=== PATIENT | male | born 1970 | race Asian ===

== ENCOUNTER 2016-03-27 16:13 | Emergency (ER) | payer SELFPAY ==
[2016-03-27 16:20] VITALS: RESP 16; TEMP 97.9
--- NOTE | 2016-03-27 16:58 | EDPHY ---
H & P Time Seen by Provider: 03/27/16 16:55 HPI/ROS: CHIEF COMPLAINT: Abdominal pain. HISTORY OF PRESENT ILLNESS: This is a 45-year-old male with a history intra- abdominal infection requiring colostomy who presents with severe abdominal pain since last night. The pain is constant. Associated with vomiting this morning. Passing a small amount of stool. History of 2 prior similar episodes, without clear diagnosis. He denies other complaints at this time. REVIEW OF SYSTEMS: A complete 10-point review of systems was performed and is negative except for those items mentioned in the HPI. Past Medical/Surgical History: Colostomy. Social History: Here with friend. Smoking Status: Current some day smoker Physical Exam: General Appearance: Moderate distress. Alert. Eyes: Pupils equal and round, no conjunctival pallor or injection ENT, Mouth: Mucous membranes moist Neck: Normal inspection Respiratory: Lungs are clear to auscultation Cardiovascular: Regular rate and rhythm Gastrointestinal: Hypoactive bowel sounds. Diffuse abdominal tenderness. Abdomen is soft. Neurological: A&O, nonfocal, normal gait Skin: Warm and dry, no rash Extremities: Nontender, no pedal edema Psychiatric: Mood and affect normal Constitutional: Initial Vital Signs Temperature (C) 36.6 C 03/27/16 16:17 Heart Rate 82 03/27/16 16:17 Respiratory Rate 16 03/27/16 16:17 Blood Pressure 115/75 03/27/16 16:17 O2 Sat (%) 94 03/27/16 16:17 O2 Delivery Mode Room Air Allergies/Adverse Reactions: No Known Allergies Allergy (Unverified 03/21/15 21:45) Home Medications: Medication Instructions Recorded Hydrocodone/APAP 5/325 [[place] 1 - 2 tab PO Q4H PRN #10 tab 03/27/16 5/325] Ondansetron Odt [Zofran Odt 4 mg 4 mg PO Q4 PRN #6 tab 03/27/16 (*)] Medical Decision Making - Diagnostics Imaging: Study: CT of the Abdomen. Indication: Pain. Results: 1. Postoperative changes of colostomy in the right lower quadrant with no associated small bowel obstruction. 2. No ascites or free air is seen. 3. Gastric distention is less pronounced than on the prior study. 4. Postoperative changes are seen involving the rectum and distal sigmoid colon with wall thickening again seen, which is less pronounced than on the previous study. Shotty lymph nodes are seen in the perirectal fat surrounding the operative site. Comparison with older studies if available would be helpful to assess for change. 5. Equivocal left renal lesion with follow up recommended and also comparison with older studies if available. 6. See above report for additional findings. The study was read by the radiologist, Dr. Dupree. I viewed the images myself on the PACS system. ED Course/Re-evaluation: Clinical presentation concerning for acute small-bowel obstruction. An IV was established, Dilaudid and Zofran IV given and labs ordered. Abdominal CT ordered. 1950: Reassessed patient. Discussed with him the results of his CT scan. No evidence of an acute intraabd problem such as SBO or abscess. He is feeling better and would like to go home. Tolerated ice chips well. Abd exam benign. Encouraged to f/u PCP. I answered all of his questions. He was given abd pain precautions prior to discharge. Differential Diagnosis: Differential diagnosis includes though it is not limited to appendicitis, cholecystitis, diverticulitis, pyelonephritis, bowel perforation, small bowel obstruction. - Data Points Laboratory Results: Laboratory Results 03/27/16 17:09 03/27/16 17:09 Medications Given: Discontinued Medications Acetaminophen/Hydrocodone Bitart ([place] 5/325mg Prepack#6) 1 btl TAKEHOME EDNOW ONE Stop: 03/27/16 19:51 Last Admin: 03/27/16 21:00 Dose: 1 btl Hydromorphone HCl (Dilaudid) 1 mg IVP EDNOW ONE Stop: 03/27/16 17:10 Last Admin: 03/27/16 17:35 Dose: 1 mg Hydromorphone HCl (Dilaudid) 1 mg IVP EDNOW ONE Stop: 03/27/16 19:17 Last Admin: 03/27/16 19:27 Dose: 1 mg Sodium Chloride (Ns) 1,000 mls @ 0 mls/hr IV ONCE ONE PRN Reason: Wide Open Stop: 03/27/16 17:10 Last Admin: 03/27/16 18:13 Dose: 1,000 mls Sodium Chloride (Ns) 1,000 mls @ 0 mls/hr IV ONCE ONE PRN Reason: Wide Open Stop: 03/27/16 17:10 Last Admin: 03/27/16 17:00 Dose: 1,000 mls Ondansetron HCl (Zofran) 4 mg IVP EDNOW ONE Stop: 03/27/16 17:10 Last Admin: 03/27/16 17:35 Dose: 4 mg Ondansetron HCl (Zofran Odt 4 Mg Prepack#2) 1 btl TAKEHOME EDNOW ONE Stop: 03/27/16 19:51 Last Admin: 03/27/16 20:58 Dose: 1 btl Departure - Departure Disposition: Home, Routine, Self-Care Clinical Impression: Abdominal pain Qualifiers: Abdominal location: generalized Qualifier Code: (R10.84) Generalized abdominal pain Condition: Good Instructions: Abdominal Pain (ED), Hydrocodone/Acetaminophen (By mouth), Ondansetron (By mouth) Additional Instructions: Follow up with your primary care provider in the next 2-3 days if symptoms are not improving. If you need a primary care provider you have been given the telephone number of [facility]. Take 1 tablet Hydrocodone every 4 hours as instructed for pain. Take 1 Zofran every 4 to 6 hours as instructed for nausea. Return to the emergency department if you experience serious worsening of condition. Referrals: [facility] [Outside] - As per Instructions Prescriptions: Hydrocodone/APAP 5/325 [[place] 5/325] 1 - 2 tab PO Q4H PRN #10 tab PRN Reason: Pain, Moderate Ondansetron Odt [Zofran Odt 4 mg (*)] 4 mg PO Q4 PRN #6 tab PRN Reason: Nausea Report Scribed for: Blessing Sun Report Scribed by: Eric Flynn Date of Report: 03/27/16 Time of Report: 16:58 Physician Review and Approval Statement: 03/27/16 16:58 Portions of this note were transcribed by a medical record transcriber. I personally performed a history, physical exam, medical decision making, and confirmed accuracy of information the transcribed note.
[2016-03-27] MEDS ORDERED: NS 1,000 ML IV ONE ×2 (17:09)
[2016-03-27] MEDS ORDERED: HYDROmorphONE/DILAUDID 1 MG/ML SYR IVP ONE ×2 (17:09→19:16)
[2016-03-27] MEDS ORDERED: ONDANSETRON 4 MG/2 ML VIAL IVP ONE (17:09)
[2016-03-27 17:46] LABS: % IMMATURE GRANULYOCYTES 0.3 % (0.0-1.1); ABSOLUTE IMMATURE GRANULOCYTES 0.02 10^3/uL (0.00-0.10); ADD DIFF? NO; ADD MORPH? NO; ADD SCAN? NO; ATYPICAL LYMPHOCYTE FLAG 10 (0-99); FRAGMENT RBC FLAG 0 (0-99); HEMATOCRIT 38.4 % (40.0-51.0); HEMOGLOBIN 13.2 g/dL (13.7-17.5); LEFT SHIFT FLG 0 (0-99); LIPEMIA HEMOLYSIS FLAG 90 (0-99); MEAN CELL HEMOGLOBIN 31.6 pg (27.9-34.1); MEAN CELL HEMOGLOBIN CONCENTR. 34.4 g/dL (32.4-36.7); MEAN CELL VOLUME 91.9 fL (81.5-99.8); MEAN PLATELET VOLUME 10.1 fL (8.7-11.7); PLATELET CLUMPS FLAG 10 (0-99); PLATELET COUNT 165 10^3/uL (150-400); RED BLOOD CELL COUNT 4.18 10^6/uL (4.40-6.38); RED CELL DISTRIBUTION WIDTH 13.6 % (11.5-15.2)
[2016-03-27 17:52] LABS: ALANINE AMINOTRANSFERASE 33 IU/L (21-72); ALBUMIN 3.7 g/dL (3.5-5.0); ALKALINE PHOSPHATASE 85 IU/L (38-126); ANION GAP 10 mEq/L (8-16); ASPARTATE AMINOTRANSFERASE 29 IU/L (17-59); BILIRUBIN,TOTAL 0.9 mg/dL (0.1-1.4); BILIRUBIN-CONJUGATED 0.2 mg/dL (0.0-0.5); BILIRUBIN-UNCONJUGATED 0.7 mg/dL (0.0-1.1); CALCIUM 8.9 mg/dL (8.5-10.4); CARBON DIOXIDE 24 mEq/l (22-31); CHLORIDE 108 mEq/L (97-110); CREATININE 0.9 mg/dL (0.7-1.3); GLOMERULAR FILTRATION RATE > 60; GLUCOSE 101 mg/dL (70-100); POTASSIUM 4.1 mEq/L (3.5-5.2); SODIUM 142 mEq/L (134-144); TOTAL PROTEIN 6.4 g/dL (6.3-8.2)
[2016-03-27] MEDS ORDERED: IOPAMIDOL (ISOVUE-300) 50 ML VIAL IV ONE ×2 (18:14)
--- NOTE | 2016-03-27 19:46 | CT ---
CT Scan of the Abdomen and Pelvis With Contrast Indication: Severe abdominal pain in a 45-year-old male with a history of colostomy. Evaluate for sma ll bowel obstruction. Technique: Multidetector CT images of the abdomen and pelvis were obtained following the uneventful intravenous administration of 90 mL Isovue-300 contrast. No oral contrast was administered. Axial shona ges were obtained at 5-mm intervals and reformatted at 1.5-mm thickness. The examination was reviewed on the workstation at multiple window/level settings. Sagittal and coronal reformations were perform ed. Dose reduction techniques were utilized for this examination. Comparison: Comparison to the previous study from March 21, 2015. CT Abdomen Findings: Lung bases: Normal. No pleural fluid. There is gastric distention, which is less pronounced than on the previous examination. Liver: Normal. Biliary system: Normal gallbladder. No intra or extrahepatic dilatation. Spleen: There is a 1 cm diameter well circumscribed fluid attenuation area within the periphery of th e spleen, presumably a simple cyst. This was present on the previous study, but is more optimally dem onstrated on the current examination. Pancreas: Normal. Adrenals: Normal. Kidneys: No nephrolithiasis or hydronephrosis. There is a 2 cm diameter area of diminished attenuatio n in the midpole of the left kidney laterally. This is of uncertain etiology. A targeted renal ultras ound could be performed in 3 months for further characterization and to evaluate for stability. This was not definitely seen on the prior study. Abdominal Aorta: No aneurysm. No bowel obstruction, ascites, or retroperitoneal lymphadenopathy. CT Pelvis Findings: Postoperative changes of colostomy are seen in the right lower quadrant. There is no bowel dilatation or obstruction associated with the ostomy. On the previous study, there was rath er pronounced thickening of the rectal soft tissues in a region where there has been prior operation. The extent of bowel wall thickening has significantly diminished compared to the previous examinatio n. No free fluid is identified. Numerous paracolic shotty lymph nodes are seen in this region. Impression: 1. Postoperative changes of colostomy in the right lower quadrant with no associated small bowel obst ruction. 2. No ascites or free air is seen. 3. Gastric distention is less pronounced than on the prior study. 4. Postoperative changes are seen involving the rectum and distal sigmoid colon with wall thickening again seen, which is less pronounced than on the previous study. Shotty lymph nodes are seen in the p erirectal fat surrounding the operative site. Comparison with older studies if available would be hel pful to assess for change. 5. Equivocal left renal lesion with follow up recommended and also comparison with older studies if a vailable. 6. See above report for additional findings. A preliminary report was called to Dr. Blessing Sun at 1930 hours in the Emergency Department.
[2016-03-27] MEDS ORDERED: HYDROCOD/APAP 5/325 PREPACK#6 BTL TAKEHOME ONE (19:50)
[2016-03-27] MEDS ORDERED: ONDANSETRON 4MG PREPACK#2 BTL TAKEHOME ONE (19:50)
[2016-03-27 21:02] VITALS: BP 119/76; PULSE 67; O2SAT 95
== END 2016-03-27 21:02 | disposition home or self-care (01) ==
DX: R10.84 Generalized abdominal pain (principal); F17.200 Nicotine dependence, unspecified, uncomplicated; R11.10 Vomiting, unspecified
CPT/HCPCS: 96374; J1170; J2405; Q9967

== ENCOUNTER 2016-07-24 19:13 | Emergency (ER) | payer SELFPAY ==
[2016-07-24 19:20] VITALS: BP 130/78; PULSE 102; RESP 24; TEMP 97.7; O2SAT 96
--- NOTE | 2016-07-24 19:23 | EDPHY ---
H & P Stated Complaint: R leg swelling and pain Time Seen by Provider: 07/24/16 19:22 - Personal History Current Tetanus/Diphtheria Vaccine: Unsure Current Tetanus Diphtheria and Acellular Pertussis (TDAP): Unsure - Medical/Surgical History Hx Asthma: No Hx Chronic Respiratory Disease: No Hx Diabetes: No Hx Cardiac Disease: No Hx Renal Disease: No Hx Cirrhosis: No Hx Alcoholism: No Hx HIV/AIDS: No Hx Splenectomy or Spleen Trauma: No Other PMH: colostomy, abdo sx, leg sx, clots in leg - Social History Smoking Status: Current every day smoker Constitutional: Initial Vital Signs Temperature (C) 36.5 C 07/24/16 19:17 Heart Rate 102 H 07/24/16 19:17 Respiratory Rate 24 H 07/24/16 19:17 Blood Pressure 130/78 H 07/24/16 19:17 O2 Sat (%) 96 07/24/16 19:17 O2 Delivery Mode Room Air Allergies/Adverse Reactions: No Known Allergies Allergy (Unverified 07/24/16 19:16) Home Medications: Medication Instructions Recorded Ibuprofen 07/24/16 oxyCODONE IR [Oxycodone Ir (*)] 5 - 10 mg PO Q6 PRN #20 tab 07/24/16 Medical Decision Making - Diagnostics Imaging Results: Imaging Impressions Extremity Venous Study 07/24/16 19:27 Impression: No deep venous thrombosis right leg. Imaging: Discussed imaging studies w/ call center dispatcher Radiologist ED Course/Re-evaluation: CHIEF COMPLAINT: Right leg pain HISTORY OF PRESENT ILLNESS: The patient is a 46 y/o male complaining of right leg pain and swelling onset 3 days ago. He reports a history of unspecified right leg venous surgery in 1991 and has ongoing pain in this leg. His pain has worsened over the last few days, though it's unclear if the swelling is new or chronic. No chest pain, shortness of breath, recent travel, or long periods of sitting. No anticoagulants. REVIEW OF SYSTEMS: A 10 point review of systems was performed and is negative with the exception of the elements mentioned in the history of present illness. PHYSICAL EXAM: HR, BP, O2 Sat, RR. Temp noted General Appearance: Alert, well hydrated, appropriate, and non-toxic appearing. Head: Atraumatic without scalp tenderness or obvious injury Eyes: Pupils equal, round, reactive to light and accommodation, EOMI, no trauma , no injection. Throat: mucus membranes moist. Neck: Supple,nontender, no lymphadenopathy. Respiratory: No retractions, no distress, no wheezes, and no accessory muscle use. Lungs are clear to auscultation bilaterally. Cardiovascular: Regular rate and rhythm, no murmurs, rubs, or gallops. Right dorsalis pedis pulse intact. Good capillary refill all extremities. Gastrointestinal: Abdomen is soft, nontender, non-distended, no masses, no rebound, no guarding, no peritoneal signs. Musculoskeletal: Right leg: Hugely swollen leg with chronic unspecified venous issues with significant scar tissue. Other extremities are normal in appearance. Neurological: Alert, appropriate, and interactive. Nonfocal neuro exam. Skin: No rashes, good turgor, no nodules on palpation. Past medical history: "Vein problem" Past surgical history: Unspecified right leg vein surgery in 1991. Family history: noncontributory Social history: Friend at bedside translated for me. Prior medical records reviewed including ED visit March 2016 and March 2015 for pain. DIAGNOSTICS/PROCEDURES/CRITICAL CARE TIME: US right leg: negative for DVT DIFFERENTIAL DIAGNOSIS: The differential diagnosis for the patient's leg swelling included but was not limited to chronic lymphedema, hypoalbuminemia, congestive heart failure, cor pulmonale, venous stasis, trauma, and DVT. MEDICAL DECISION MAKING: This is a 46 y/o male with chronic right leg pain complaining of worsening pain over the last 3 days. History is limited and obtained primarily from his friend who is translating at bedside for me. He has significant lymphedema, which may be chronic, and surgical scars along his leg. He has a narcotic caution on his chart. Plan for US of right leg to rule out DVT and CPDMP review. Reviewed patient's narcotic history on CPDMP. He has received several narcotic prescriptions from different providers over the last year - 180 pills of 10mg oxycodone in May by Dr. Lou Gonzalez and a separate script in June from another provider. He reported to me today that he is only using ibuprofen for pain. Reassessed patient and discussed findings with the patient. He will be discharged with a small narcotic script and recommendation to follow up with Dr. Gonzalez, who prescribes his narcotics, for ongoing pain. Return precautions given. He is comfortable with this plan. - Data Points Medications Given: Discontinued Medications Oxycodone/Acetaminophen (Percocet 5/325) 2 tab PO EDNOW ONE Stop: 07/24/16 19:29 Last Admin: 07/24/16 19:55 Dose: 2 tab Oxycodone/Acetaminophen (Percocet 5/325mg Prepack#4) 1 btl TAKEHOME EDNOW ONE Stop: 07/24/16 20:22 Last Admin: 07/24/16 20:34 Dose: 1 btl Departure - Departure Disposition: Home, Routine, Self-Care Clinical Impression: Leg pain, right Condition: Good Instructions: Leg Pain (ED) Additional Instructions: Follow up with the doctor that prescribes your pain medication for continued pain. Return to the ED for shortness of breath, chest pain, or other worsening of condition. Referrals: [facility],. [Clinic] - As per Instructions Prescriptions: oxyCODONE IR [Oxycodone Ir (*)] 5 - 10 mg PO Q6 PRN #20 tab PRN Reason: Pain, Severe Report Scribed for: Robby Scott Report Scribed by: Megan Hardy Date of Report: 07/24/16 Time of Report: 19:31
[2016-07-24] MEDS ORDERED: OXYCODONE/APAP 5/325 TAB PO ONE (19:28)
[2016-07-24] MEDS ORDERED: OXYCODONE/APAP 5/325MG PREPACK#4 BTL TAKEHOME ONE (20:21)
== END 2016-07-24 20:35 | disposition home or self-care (01) ==
DX: M79.604 Pain in right leg (principal); F17.200 Nicotine dependence, unspecified, uncomplicated

== ENCOUNTER 2017-01-25 02:47 | Emergency (ER) | payer SELFPAY ==
[2017-01-25] MEDS ORDERED: ACETAMINOPHEN 500 MG TAB PO ONE (03:20)
[2017-01-25] MEDS ORDERED: KETOROLAC 15 MG/1 ML SDV IVP ONE (03:20)
[2017-01-25] MEDS ORDERED: KETAMINE 100 MG/10 ML SYR IVP ONE (03:20)
[2017-01-25 03:38] LABS: % IMMATURE GRANULYOCYTES 0.2 % (0.0-1.1); ABSOLUTE IMMATURE GRANULOCYTES 0.02 10^3/uL (0.00-0.10); ADD DIFF? NO; ADD MORPH? NO; ADD SCAN? NO; ATYPICAL LYMPHOCYTE FLAG 0 (0-99); FRAGMENT RBC FLAG 0 (0-99); HEMATOCRIT 40.1 % (40.0-51.0); HEMOGLOBIN 14.1 g/dL (13.7-17.5); LEFT SHIFT FLG 0 (0-99); LIPEMIA HEMOLYSIS FLAG 90 (0-99); MEAN CELL HEMOGLOBIN CONCENTR. 35.2 g/dL (32.4-36.7); MEAN CELL VOLUME 90.9 fL (81.5-99.8); MEAN PLATELET VOLUME 9.4 fL (8.7-11.7); PLATELET CLUMPS FLAG 0 (0-99); PLATELET COUNT 176 10^3/uL (150-400); RED BLOOD CELL COUNT 4.41 10^6/uL (4.40-6.38); RED CELL DISTRIBUTION WIDTH 12.9 % (11.5-15.2)
[2017-01-25 03:49] LABS: ALANINE AMINOTRANSFERASE 45 IU/L (21-72); ALBUMIN 4.5 g/dL (3.5-5.0); ALKALINE PHOSPHATASE 76 IU/L (38-126); ANION GAP 13 mEq/L (8-16); ASPARTATE AMINOTRANSFERASE 50 IU/L (17-59); BILIRUBIN,TOTAL 0.8 mg/dL (0.1-1.4); CALCIUM 9.4 mg/dL (8.5-10.4); CARBON DIOXIDE 24 mEq/l (22-31); CHLORIDE 106 mEq/L (97-110); CREATININE 0.9 mg/dL (0.7-1.3); GLOMERULAR FILTRATION RATE > 60; GLUCOSE 138 mg/dL (70-100); POTASSIUM 3.9 mEq/L (3.5-5.2); SODIUM 143 mEq/L (134-144); TOTAL PROTEIN 7.3 g/dL (6.3-8.2)
[2017-01-25 04:34] VITALS: RESP 16
--- NOTE | 2017-01-25 04:37 | EDPHY ---
H & P Stated Complaint: SWOLLEN TESTICLES AND R LEG FOR PAST 3 DAYS HPI/ROS: HPI The patient presents with right leg and testicular swelling with pain for the last several days. The patient has a history of lymphedema from some sort of childhood accident or congenital abnormality. He had multiple operations performed in [facility] and has been living in [place] for the last several years. He has had pain that became worse over the last several days without any trauma or incident. He has been taking ibuprofen without much improvement. He has noticed some testicular swelling in a similar time course. He has not been followed by a primary care doctor in some time. He is here with a friend. REVIEW OF SYSTEMS Constitutional: No fever, no chills. Eyes: No discharge. ENT: No sore throat. Cardiovascular: No chest pain, no palpitations. Respiratory: No cough, no shortness of breath. Gastrointestinal: No abdominal pain, no vomiting. Genitourinary: No hematuria. Musculoskeletal: No back pain. Skin: No rashes. Neurological: No headache. PMHx: Chronic right leg pain after multiple operations [place], colostomy Soc Hx: Staying with a friend currently PHYSICAL General Appearance: Alert, no distress Eyes: Pupils equal and round no pallor or injection ENT, Mouth: Mucous membranes moist Respiratory: There are no retractions, lungs are clear to auscultation Cardiovascular: Regular rate and rhythm Gastrointestinal: Abdomen is soft and non-tender, no masses, bowel sounds normal : Nontender scrotal edema without any erythema or areas of fluctuance Neurological: A&O, moves all extremities Skin: Warm and dry, no rashes Musculoskeletal: Neck is supple non tender Extremities: Right leg with lateral scarring, there is diffuse edema and varicosities of his right leg, there is tenderness throughout his right calf Psychiatric: Patient is oriented X 3, there is no agitation Source: Patient, [employer] Exam Limitations: No limitations - Personal History Current Tetanus/Diphtheria Vaccine: Yes Current Tetanus Diphtheria and Acellular Pertussis (TDAP): Yes - Medical/Surgical History Hx Asthma: No Hx Chronic Respiratory Disease: No Hx Diabetes: No Hx Cardiac Disease: No Hx Renal Disease: No Hx Cirrhosis: No Hx Alcoholism: No Hx HIV/AIDS: No Hx Splenectomy or Spleen Trauma: No Other PMH: colostomy, abdo sx, leg sx, clots in leg - Social History Smoking Status: Current every day smoker Constitutional: Initial Vital Signs Temperature (C) 36.4 C 01/25/17 02:51 Heart Rate 97 01/25/17 02:51 Respiratory Rate 18 01/25/17 02:51 Blood Pressure 147/83 H 01/25/17 02:51 O2 Sat (%) 98 01/25/17 02:51 O2 Delivery Mode Room Air Allergies/Adverse Reactions: No Known Allergies Allergy (Unverified 01/25/17 02:53) Home Medications: Medication Instructions Recorded Ibuprofen 07/24/16 oxyCODONE IR [Oxycodone Ir (*)] 5 - 10 mg PO Q6 PRN #20 tab 07/24/16 Medical Decision Making Differential Diagnosis: 46-year-old male with past medical history of leg injury requiring multiple operations and colostomy, chronic pain, narcotic precautions noted on chart, presents with right leg pain and swelling which started spontaneously. There is no erythema or warmth making infectious process unlikely. He could possibly have a DVT given that he has these varicosities. He could be having a flare of his chronic pain. His testicular swelling is likely resultant of his leg swelling and I doubt torsion or infection given no tenderness on exam. In the emergency department, the patient was given pain medication with complete resolution of his symptoms. DVT study was performed and was normal for DVT. Labs were unremarkable. He felt well enough to go home and was discharged. I strongly encouraged him to follow [facility] and I have also given him information for Urology for his presumed hydrocele. - Data Points Laboratory Results: Laboratory Results 01/25/17 03:30 01/25/17 03:30 01/25/17 01/25/17 03:30 03:30 WBC 10.32 10^3/uL H 10^3/uL (3.80-9.50) RBC 4.41 10^6/uL 10^6/uL (4.40-6.38) Hgb 14.1 g/dL g/dL (13.7-17.5) Hct 40.1 % % (40.0-51.0) MCV 90.9 fL fL (81.5-99.8) MCH 32.0 pg pg (27.9-34.1) MCHC 35.2 g/dL g/dL (32.4-36.7) RDW 12.9 % % (11.5-15.2) Plt Count 176 10^3/uL 10^3/uL (150-400) MPV 9.4 fL fL (8.7-11.7) Neut % (Auto) 77.2 % H % (39.3-74.2) Lymph % (Auto) 15.5 % % (15.0-45.0) [place] % (Auto) 6.2 % % (4.5-13.0) Eos % (Auto) 0.6 % % (0.6-7.6) Baso % (Auto) 0.3 % % (0.3-1.7) Nucleat RBC Rel Count 0.0 % % (0.0-0.2) Absolute Neuts (auto) 7.97 10^3/uL H 10^3/uL (1.70-6.50) Absolute Lymphs (auto) 1.60 10^3/uL 10^3/uL (1.00-3.00) Absolute Monos (auto) 0.64 10^3/uL 10^3/uL (0.30-0.80) Absolute Eos (auto) 0.06 10^3/uL 10^3/uL (0.03-0.40) Absolute Basos (auto) 0.03 10^3/uL 10^3/uL (0.02-0.10) Absolute Nucleated RBC 0.00 10^3/uL 10^3/uL (0-0.01) Immature Gran % 0.2 % % (0.0-1.1) Immature Gran # 0.02 10^3/uL 10^3/uL (0.00-0.10) Sodium 143 mEq/L mEq/L (134-144) Potassium 3.9 mEq/L mEq/L (3.5-5.2) Chloride 106 mEq/L mEq/L (97-110) Carbon Dioxide 24 mEq/l mEq/l (22-31) Anion Gap 13 mEq/L mEq/L (8-16) BUN 16 mg/dL mg/dL (7-23) Creatinine 0.9 mg/dL mg/dL (0.7-1.3) Estimated GFR > 60 Glucose 138 mg/dL H mg/dL (70-100) Calcium 9.4 mg/dL mg/dL (8.5-10.4) Total Bilirubin 0.8 mg/dL mg/dL (0.1-1.4) AST 50 IU/L IU/L (17-59) ALT 45 IU/L IU/L (21-72) Alkaline Phosphatase 76 IU/L IU/L (38-126) Total Protein 7.3 g/dL g/dL (6.3-8.2) Albumin 4.5 g/dL g/dL (3.5-5.0) Medications Given: Discontinued Medications Acetaminophen (Tylenol) 1,000 mg PO EDNOW ONE Stop: 01/25/17 03:21 Last Admin: 01/25/17 03:33 Dose: 1,000 mg Ketamine HCl (Ketamine) 15 mg 0.2 mg/kg (15 mg) IVP EDNOW ONE Stop: 01/25/17 03:21 Last Admin: 01/25/17 03:33 Dose: 15 mg Ketorolac Tromethamine (Toradol) 15 mg IVP EDNOW ONE Stop: 01/25/17 03:21 Last Admin: 01/25/17 03:33 Dose: 15 mg Departure - Departure Disposition: Home, Routine, Self-Care Clinical Impression: Right leg pain, Scrotal edema Condition: Good Instructions: Leg Pain (ED) Additional Instructions: [facility] call [facility] to arrange for primary care. You should also call the urologist to see if you can have follow-up for this scrotal swelling. Referrals: [facility],. [Clinic] - As per Instructions Dillon Castanon MD [Medical Doctor] - As per Instructions
[2017-01-25 04:52] VITALS: BP 119/73; PULSE 66; TEMP 97.9; O2SAT 94
== END 2017-01-25 04:51 | disposition home or self-care (01) ==
DX: M79.604 Pain in right leg (principal); N50.89 Other specified disorders of the male genital organs; F17.200 Nicotine dependence, unspecified, uncomplicated
CPT/HCPCS: 96374; J1885